=== PATIENT | male | born 1960 | race Caucasian/White ===

== ENCOUNTER 2020-06-03 14:10 | Outpatient (REF) | payer BC, SELFPAY | END 2020-06-03 14:11 | disposition home or self-care (01) | LOC: HO.BBR 14:10 | PROVIDERS: Visit Provider Internal Medicine Hematology & Oncology | DX: D45 Polycythemia vera (principal) | CPT/HCPCS: 85018; 99195 ==

== ENCOUNTER 2020-07-22 14:53 | Outpatient (REF) | payer BC, SELFPAY | END 2020-07-22 14:54 | disposition home or self-care (01) | LOC: HO.BBR 14:53 | PROVIDERS: Visit Provider Internal Medicine Hematology & Oncology | DX: D45 Polycythemia vera (principal) | CPT/HCPCS: 85018; 99195 ==

== ENCOUNTER 2020-11-25 15:04 | Outpatient (REF) | payer BC, SELFPAY | END 2020-11-25 15:05 | disposition home or self-care (01) | LOC: HO.BBR 15:04 | PROVIDERS: Visit Provider Internal Medicine Hematology & Oncology | DX: D45 Polycythemia vera (principal) | CPT/HCPCS: 36415; 85014; 85018; 99195 ==

== ENCOUNTER 2021-01-06 14:48 | Outpatient (REF) | payer BC, SELFPAY | END 2021-01-06 14:49 | disposition home or self-care (01) | LOC: HO.BBR 14:48 | PROVIDERS: PCP Internal Medicine; Visit Provider Internal Medicine Hematology & Oncology | DX: D45 Polycythemia vera (principal) | CPT/HCPCS: 85018; 99195 ==

== ENCOUNTER 2021-02-21 15:11 | Outpatient (REF) | payer BC, SELFPAY | END 2021-02-21 15:12 | disposition home or self-care (01) | LOC: HO.BBR 15:11 | PROVIDERS: Visit Provider Internal Medicine Hematology & Oncology | DX: D45 Polycythemia vera (principal) | CPT/HCPCS: 85014; 85018; 99195 ==

== ENCOUNTER 2021-05-19 14:48 | Outpatient (REF) | payer BC, SELFPAY | END 2021-05-19 14:49 | disposition home or self-care (01) | LOC: HO.BBR 14:48 | PROVIDERS: Visit Provider Internal Medicine Hematology & Oncology | DX: D45 Polycythemia vera (principal) | CPT/HCPCS: 85018; 99195 ==

== ENCOUNTER 2021-09-23 11:54 | Outpatient (REF) | payer BC, SELFPAY | END 2021-09-23 11:55 | disposition home or self-care (01) | LOC: HO.BBR 11:54 | PROVIDERS: Visit Provider Internal Medicine Hematology & Oncology | DX: D45 Polycythemia vera (principal) | CPT/HCPCS: 85018; 99195 ==

== ENCOUNTER 2021-12-16 13:51 | Outpatient (REF) | payer BC, SELFPAY | END 2021-12-16 13:52 | disposition home or self-care (01) | LOC: HO.BBR 13:51 | PROVIDERS: Visit Provider Internal Medicine Hematology & Oncology | DX: D45 Polycythemia vera (principal) | CPT/HCPCS: 85018; 99195 ==

== ENCOUNTER 2022-01-26 14:17 | Outpatient (REF) | payer BC, SELFPAY | END 2022-01-26 14:18 | disposition home or self-care (01) | LOC: HO.BBR 14:17 | PROVIDERS: Visit Provider Internal Medicine Hematology & Oncology | DX: D45 Polycythemia vera (principal) | CPT/HCPCS: 85018; 99195 ==

== ENCOUNTER 2022-04-21 13:59 | Outpatient (REF) | payer BC, SELFPAY | END 2022-04-21 14:00 | disposition home or self-care (01) | LOC: HO.BBR 13:59 | PROVIDERS: Visit Provider Internal Medicine Hematology & Oncology | DX: D45 Polycythemia vera (principal) | CPT/HCPCS: 85018; 99195 ==

== ENCOUNTER 2022-06-01 13:56 | Outpatient (REF) | payer BC, SELFPAY | END 2022-06-01 13:57 | disposition home or self-care (01) | LOC: HO.BBR 13:56 | PROVIDERS: Visit Provider Internal Medicine Hematology & Oncology | DX: Z13.89 Encounter for screening for other disorder (principal) ==

== ENCOUNTER 2022-07-21 13:52 | Outpatient (REF) | payer BC, SELFPAY | END 2022-07-21 13:53 | disposition home or self-care (01) | LOC: HO.BBR 13:52 | PROVIDERS: Visit Provider Internal Medicine Hematology & Oncology | DX: D45 Polycythemia vera (principal) | CPT/HCPCS: 85018; 99195 ==

== ENCOUNTER 2022-11-02 11:54 | Outpatient (REF) | payer OTHER, SELFPAY | END 2022-11-02 11:55 | disposition home or self-care (01) | LOC: HO.BBR 11:54 | PROVIDERS: Visit Provider Internal Medicine Hematology & Oncology | DX: D45 Polycythemia vera (principal) | CPT/HCPCS: 85018; 99195 ==

== ENCOUNTER 2023-01-26 13:48 | Outpatient (REF) | payer OTHER, SELFPAY | END 2023-01-26 13:49 | disposition home or self-care (01) | LOC: HO.BBR 13:48 | PROVIDERS: Visit Provider Internal Medicine Hematology & Oncology | DX: D45 Polycythemia vera (principal) | CPT/HCPCS: 85018; 99195 ==

== ENCOUNTER 2023-03-09 13:48 | Outpatient (REF) | payer OTHER, SELFPAY | END 2023-03-09 13:49 | disposition home or self-care (01) | LOC: HO.BBR 13:48 | PROVIDERS: Visit Provider Internal Medicine Hematology & Oncology | DX: D45 Polycythemia vera (principal) | CPT/HCPCS: 85014; 85018; 99195 ==

== ENCOUNTER 2023-07-19 13:57 | Outpatient (REF) | payer OTHER, SELFPAY | END 2023-07-19 13:58 | disposition home or self-care (01) | LOC: HO.BBR 13:57 | PROVIDERS: Visit Provider Internal Medicine Hematology & Oncology | DX: D75.1 Secondary polycythemia (principal) | CPT/HCPCS: 85014; 85018; 99195 ==

== ENCOUNTER 2023-10-11 09:54 | Outpatient (REF) | payer OTHER, SELFPAY | END 2023-10-11 09:55 | disposition home or self-care (01) | LOC: HO.BBR 09:54 | PROVIDERS: Visit Provider Internal Medicine Hematology & Oncology | DX: D45 Polycythemia vera (principal) | CPT/HCPCS: 85014; 85018; 99195 ==

== ENCOUNTER 2024-01-11 10:02 | Outpatient (REF) | payer OTHER, SELFPAY | END 2024-01-11 10:03 | disposition home or self-care (01) | LOC: HO.BBR 10:02 | PROVIDERS: Visit Provider Internal Medicine Hematology & Oncology | DX: D45 Polycythemia vera (principal) | CPT/HCPCS: 85018 ==

== ENCOUNTER 2024-01-12 07:52 | Outpatient (REF) | payer OTHER, SELFPAY | END 2024-01-12 07:53 | disposition home or self-care (01) | LOC: HO.BBR 07:52 | PROVIDERS: Visit Provider Internal Medicine Hematology & Oncology | DX: D45 Polycythemia vera (principal) | CPT/HCPCS: 85018; 99195 ==

== ENCOUNTER 2024-04-10 11:48 | Outpatient (REF) | payer OTHER, SELFPAY | END 2024-04-10 11:49 | disposition home or self-care (01) | LOC: HO.BBR 11:48 | PROVIDERS: Visit Provider Internal Medicine Hematology & Oncology | DX: D45 Polycythemia vera (principal) | CPT/HCPCS: 85018; 99195 ==

== ENCOUNTER 2024-09-26 09:53 | Outpatient (REF) | payer OTHER, SELFPAY ==
--- OUTSIDE RECORDS SUMMARY | 2024-09-26 11:03 | XMS_ITS | Clinical Summary ---
Author Organization [facility] Address [address] [place] [address] Care Team Providers Care Poultry Culler Name Role Phone Maritza Dalton MD Primary Care Provider [phone] Allergies No known active allergies Medications Medication Sig Dispensed Refills Start Date End Date Status pravastatin (PRAVACHOL) tablet 20 mg Take 1 tablet (20 mg total) by mouth daily. 0 Active lisinopril 20 MG TABS 1 tablet, hydrochlorothiazide 25 MG TABS 1 tablet Take 1 tablet by mouth daily. 0 Active aspirin 81 MG tablet Take 1 tablet (81 mg total) by mouth daily. 0 Active HYDROcodone-acetaminophe n (NORCO) 5-325 MG per tablet Take 1 tablet by mouth every 6 (six) hours as needed for pain. 30 tablet 0 08/14/2020 Active gabapentin (NEURONTIN) 100 MG capsule Take 2 capsules (200 mg total) by mouth 3 (three) times a day. 180 capsule 1 08/30/2020 Active Active Problems Problem Noted Date Diagnosed Date Erythromelalgia 08/30/2020 Polycythemia vera 03/02/2017 Family History Medical History Relation Name Comments Cancer Father brain Relation Name Status Comments Father Social History Tobacco Use Types Packs/Day Years Used Date Smoking Tobacco: Never Smokeless Tobacco: Never Alcohol Use Standard Drinks/Week Comments No 0 (1 standard drink = 0.6 oz pur e alcohol) Sex and Gender Information Value Date Recorded Sex Assigned at Not on file Gender Identity Not on file Sexual Orientation Not on file Job Start Date Occupation Industry Not on file Not on file Not on file Last Filed Vital Signs Vital Sign Reading Time Taken Comments Blood Pressure 133/79 05/19/2024 3:26 PM EDT Pulse 85 05/19/2024 3:26 PM EDT Temperature 36.6 ??C (97.8 ??F) 05/19/2024 3:26 PM ED T Respiratory Rate - - Oxygen Saturation 99% 05/19/2024 3:26 PM EDT Inhaled Oxygen Concentration - - Weight 92.1 kg (203 lb) 05/19/2024 3:26 PM EDT Height 170.2 cm (5' 7 ) 05/19/2024 3:26 PM EDT Body Mass Index 31.79 05/19/2024 3:26 PM EDT Plan of Treatment Health Maintenance Due Date Last Done Comments Hepatitis C Screening 1960 COVID-19 Vaccine (#1) 1963 Pneumococcal Vaccine (1 of 2 - PCV) 01/18/1964 Depression Screening 1970 BMI Counseling 01/18/1976 Preventative Health Evaluation 01/18/1976 DTap / Tdap / Td (1 - Tdap) 1977 Shingrix-Zoster Vaccine (1 of 2) 1977 Colon Cancer Screening (Colonoscopy) 2003 Fall Risk Assessment 2023 Influenza Vaccine (#1) 2024 RSV Adult > 60+ Yrs or Pregn ant (1 - 1-dose 75+ series) 2033 Hepatitis B Vaccines Aged Out No long er eligible based on patient's age to complete this topic RSV Ped < 20 months Aged Out No longe r eligible based on patient's age to complete this topic Care Teams Poultry Culler Relationship Specialty Start Date End Date Maritza Dalton MD [address] [place] [address] [address] [place] [address] PCP - General Internal Medicine 02/24/17
--- OUTSIDE RECORDS SUMMARY | 2024-09-26 11:03 | XMS_ITS | Encounter Summary ---
Author Organization [facility] Address [address] [place] [address] Care Team Providers Care Die Maker Electronic Name Role Phone Maritza Dalton MD Primary Care Provider [phone] Encounter Details Date Type Department Care Team (Late Contact Info) Description 09/25/2024 Telephone Gastroenterology - [address] [phone] Carl Herrera MD [address] [address] Social History Tobacco Use Types Packs/Day Years Used Date Smoking Tobacco: Never Smokeless Tobacco: Never Alcohol Use Standard Drinks/Week Comments No 0 (1 standard drink = 0.6 oz pur e alcohol) Sex and Gender Information Value Date Recorded Sex Assigned at Not on file Legal Sex Male 7:04 AM EST Gender Identity Not on file Sexual Orientation Not on file documented as of this encounter Progress Notes * Shawna Morrison - 09/25/2024 10:32 AM EST PT RETURNING CALL TO SCHEDULE COLON documented in this encounter Plan of Treatment Upcoming Encounters Date Type Department Care Team (Late st Contact Info) Description 12/15/2024 2:30 PM EDT Office Visit [facility] Hematology Oncology [address] [place] [phone] Jose M Jose MD [address] [place] [address] documented as of this encounter Visit Diagnoses Not on filedocumented in this encounter Care Teams Die Maker Electronic Relationship Specialty Start Date End Date Maritza Dalton MD [address] [place] [address] PCP - General Internal Medicine 02/24/17 documented as of this encounter
--- OUTSIDE RECORDS SUMMARY | 2024-09-26 11:03 | XMS_ITS | Encounter Summary ---
Author Organization [facility] Address [address] [place] [phone] Care Team Providers Care Precision Honing Machine Operator Name Role Phone Maritza Dalton MD Primary Care Provider [phone] Reason for Visit * Reason Comments Follow-up Encounter Details Date Type Department Care Team (Late st Contact Info) Description 09/22/2024 2:15 PM EST Office Visit [facility] Hematology Oncology [address] [place] [phone] Jose M Jose MD [address] [place] [phone] Polycythemia vera (CMS/HCC) (Primary Dx) Social History Tobacco Use Types Packs/Day Years Used Date Smoking Tobacco: Never Smokeless Tobacco: Never Tobacco Cessation:Counseling Given: Not Answered Alcohol Use Standard Drinks/Week Comments No 0 (1 standard drink = 0.6 oz pur e alcohol) Sex and Gender Information Value Date Recorded Sex Assigned at Not on file Legal Sex Male 7:04 AM EST Gender Identity Not on file Sexual Orientation Not on file documented as of this encounter Last Filed Vital Signs Vital Sign Reading Time Taken Comments Blood Pressure 155/74 09/22/2024 2:17 PM EST Pulse 97 09/22/2024 2:17 PM EST Temperature 36.2 ??C (97.2 ??F) 09/22/2024 2:17 PM ES T Respiratory Rate - - Oxygen Saturation 100% 09/22/2024 2:17 PM EST Inhaled Oxygen Concentration - - Weight 94.3 kg (208 lb) 09/22/2024 2:17 PM EST Height - - Body Mass Index 32.58 06/30/2024 3:39 PM EST documented in this encounter Progress Notes * Jose M Jose MD - 09/22/2024 2:15 PM EST Diagnosis/treatment: Polycythemia vera, diagnosed in 2010. He is treated with phlebotomies every 6 weeks and ASA 81 mg daily. Interval history: The patient is a 64 yo M [...] has hypertension, which is improved with phlebotomies. A FRANK-2 exon 12 and 13 and a FRANK-2 exon 14 studies and a BCR-ABL study were negative. An EPO level was normal. A CXR was unremarkable. An abdominal US was unremarkable. He has started phlebotomies at 450 cc and is tolerating the procedures well. He had one syncopal episode in the infusion room in mid-06/2012 immediately following phlebotomy, but reported not having eaten breakfast or lunch that day. A CBC on 08/28/2020 showed a WBC [...] MCV 87, and platelet count 525,000. He underwent a left knee replacement on 06/01/2024. A CBC on 06/28/2024 showed WBC 10.9, hemoglobin 13.2 with MCV 91, and platelet count 675,000. A CBC on 08/08/2024 showed WBC 9.8, hemoglobin 14.9 with MCV 91, and platelet count 524,000. A CBC on 09/20/2024 showed WBC 11.7, hemoglobin 13.7 with MCV 90, and platelet count 540,000. 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 He reports that the pain is bothersome at nighttime, especially while lying flat, and prevents him from sleeping, but remits during the day. The swelling also is worse at nighttime and remits during the day. She presented to the [facility] ER on 08/08/2020. A Doppler ultrasound [...] edema. Skin: No rash. Neurologic: Normal gait. Assessment/plan: The patient is a 64 yo M who was referred for evaluation of polycythemia. He likely has a [id number] polycythemia vera. An EPO level and an [...] not recurred. He remains off gabapentin. He underwent a left knee replacement on 06/01/2024. We have held the phlebotomies due to the anticipated blood loss from the surgery. We will restart phlebotomies when the hemoglobin rises above 15.0. Visit summary: The patient is a 64-year-old gentleman with a history of polycythemia vera. He is maintained on a phlebotomy regimen every 6-12 weeks with a target hemoglobin 15.0. He tolerates phlebotomies well without side effects. The hemoglobin is well-controlled with the phlebotomies. He remains on aspirin. This encounter is of moderate risk. The patient has a polycythemia vera, which is life-threatening condition. He ady on a phlebotomy regimen. documented in this encounter Plan of Treatment Upcoming Encounters Date Type Department Care Team (Late st Contact Info) Description 12/15/2024 2:30 PM EDT Office Visit [facility] Hematology Oncology [address] [place] [phone] Jose M Jose MD [address] [place] [phone] documented as of this encounter Visit Diagnoses Diagnosis Polycythemia vera (CMS/HCC)- Primary documented in this encounter Care Teams Precision Honing Machine Operator Relationship Specialty Start Date End Date Maritza Dalton MD [address] [place] [address] PCP - General Internal Medicine 02/24/17 documented as of this encounter
--- OUTSIDE RECORDS SUMMARY | 2024-09-26 11:03 | XMS_ITS | Encounter Summary ---
Author Organization [facility] Address [address] [place] [address] Care Team Providers Care Oncology Admin Name Role Phone Maritza Dalton MD Primary Care Provider [phone] Encounter Details Date Type Department Care Team (Late st Contact Info) Description 05/19/2024 3:11 PM EDT Hospital Encounter TH HISTORIC ENCOUNTERS EASTERN CONVERSION ONLY Jose M Jose MD [address] [place] [phone] Social History Tobacco Use Types Packs/Day [...] during the day. She presented to the [facility] ER on 08/08/2020. A Doppler ultrasound [...] evaluation of polycythemia. He likely has a [id number] polycythemia vera. An EPO level and an [...] Description 12/15/2024 2:30 PM EDT Office Visit [facility] Hematology Oncology [address] [place] [address] Jose M Jose MD [address] [place] [address] documented as of this encounter Procedures Procedure Name Priority Date/Time Associated Diagnosis Comments ..MISCELLANEOUS REFERENCE LAB TEST 05/19/2024 documented in this encounter Results * Miscellaneous reference lab test (05/19/2024) us Provider Onbase LAB BLOOD ORDERABLES Final Re sult documented in this encounter Visit Diagnoses Not on filedocumented in this encounter Care Teams Oncology Admin Relationship Specialty Start Date End Date Maritza Dalton MD [address] [place], [place] PCP - General Internal Medicine 02/24/17 documented as of this encounter
--- OUTSIDE RECORDS SUMMARY | 2024-09-26 11:03 | XMS_ITS | Encounter Summary ---
Author Organization [facility] Address [address] [place] [address] Care Team Providers Care Rubber Curer Name Role Phone Maritza Dalton MD Primary Care Provider [phone] Encounter Details Date Type Department Care Team (Late st Contact Info) Description 08/25/2024 Telephone Gastroenterology - [address] [phone] Carl Herrera MD [address] [address] Social History Tobacco Use Types Packs/Day Years [...] as of this encounter Progress Notes * Lesia Del Angel - 08/29/2024 4:23 PM EST DEMOS IN MEDIA, CALL PT. * Lesia Del Angel - 08/29/2024 8:47 AM EST H&P IN MEDIA, NO DEMOS. FAX SENT TO PCP * Betty Escobar MA - 08/25/2024 3:41 PM EST PATIENT IS BEING SCHEDULED FOR DIRECT COLON/EGD: Blood thinners/anemic? n Aspirin? n Heart conditions? n Diabetic? n Weight loss meds? n Pt calling PCP for H&P? y documented in this encounter Plan of Treatment Upcoming Encounters Date Type Department Care Team (Late st Contact Info) Description 12/15/2024 2:30 PM EDT Office Visit [facility] Hematology Oncology [address] [place] [address] Jose M Jose MD [address] [place] [address] documented as of this encounter Visit Diagnoses Not on filedocumented in this encounter Care Teams Rubber Curer Relationship Specialty Start Date End Date Maritza Dalton MD [address] [place] [address] PCP - General Internal Medicine 02/24/17 documented as of this encounter
--- OUTSIDE RECORDS SUMMARY | 2024-09-26 11:03 | XMS_ITS | Clinical Summary ---
Author Organization [facility] Address [address] [place] [address] Phone Care Team Providers Care Coo Name Role Phone Maritza Dalton MD Primary Care Provider [phone] Allergies No known active allergies Medications aspirin (ASPIR-81 ORAL) Take 1 tablet (81 mg total) by mouth daily. Active lisinopril-hydr oCHLOROthiazide (PRINZIDE,ZESTO RETIC) 20-25 mg per tablet Take 1 tablet by mouth daily. Active gabapentin (NEURONTIN) 100 mg capsule Take 2 capsules (200 mg total) by mouth 3 (three) times a day. 08/30/2020 Active HYDROcodone-rose taminophen (NORCO) 5-325 mg per tablet Take 1 tablet by mouth every 6 (six) hours as needed for pain. 08/14/2020 Active pravastatin (PRAVACHOL) 20 mg tablet Take 1 tablet (20 mg total) by mouth daily. Active Active Problems Problem Noted Date Diagnosed Date Erythromelalgia 08/30/2020 Polycythemia vera 03/02/2017 Encounters Date Type Department Care Team Description 09/25/2024 Telephone Gastroenterology - [address] [address] Carl Herrera MD 09/22/2024 2:15 PM EST Office Visit [facility] Hematology Oncology [address] [place] [address] Jose M Jose MD Polycythemia vera (CMS/HCC) (Primary Dx) 08/25/2024 Telephone Gastroenterology - 299 [address] [facility] [address] [address] Carl Herrera MD 08/11/2024 2:15 PM EST Office Visit [facility] Hematology Oncology [address] [place] [address] Jose M Jose MD Erythromelalgia (CMS/HCC) (Primary Dx); Polycythemia vera (CMS/HCC) 06/30/2024 3:45 PM EST Office Visit [facility] Hematology Oncology [address] [place] [address] Jose M Jose MD Polycythemia vera (CMS/HCC) (Primary Dx); Erythromelalgia (CMS/HCC) from Last 3 Months Surgical History Surgery Date Site/Laterality Comments TOTAL KNEE ARTHROPLASTY 06/01/2024 Left Medical History Medical History Date Comments Polycythemia DX:Polycythemia Hypertension DX:Hypertension Hypercholesterolemia DX:Hypercho lesterolemia Family History Medical History Relation Name Comments [...] on file Sexual Orientation Not on file Obstetrics History Last Filed Vital Signs Vital Sign Reading Time Taken Comments Blood Pressure 155/74 09/22/2024 2:17 PM EST Pulse 97 09/22/2024 2:17 PM EST Temperature 36.2 ??C (97.2 ??F) 09/22/2024 2:17 PM ES T Respiratory Rate - - Oxygen Saturation 100% 09/22/2024 2:17 PM EST Inhaled Oxygen Concentration - - Weight 94.3 kg (208 lb) 09/22/2024 2:17 PM EST Height 170.2 cm (5' 7 ) 06/30/2024 3:39 PM EST Body Mass Index 32.58 06/30/2024 3:39 PM EST Plan of Treatment Upcoming Encounters Date Type Department Care Team (Late st Contact Info) Description 12/15/2024 2:30 PM EDT Office Visit [facility] Hematology Oncology [address] [place] [address] Jose M Jose MD [address] [place] [address] Health Maintenance Due Date Last Done Comments Pneumococcal Vaccine: 50+ Years (1 of 2 - PCV) 1977 Zoster Vaccines (1 of 2) 1977 Cholesterol Screening (Lipid Panel) 07/19/2022 Colorectal Cancer Screening: Colonoscopy 07/19/2022 Depression Screening 07/19/2022 Hepatitis C Screening 07/19/2022 Medicare Annual Wellness Visit 07/19/2022 Social Influencers of Health Screening 07/19/2022 DTaP,Tdap,and Td Vaccines (2 - Td or Tdap) 11/16/2022 10/19/2022 Falls Risk Assessment 2023 Hypertension/CHF/CAD Annual BMP Blood Test 06/28/2024 RSV Immunization Patients 60+ Years Old (1 - 1-dose 75+ series) 2033 COVID-19 Vaccine Completed 04/24/2024, 10/2022, 05/12/2022, Additional history exists Influenza Vaccine Completed 04/24/2024, , 05/03/2022, Additional history exists HIB Vaccines Aged Out No longer eligi ble based on patient's age to complete this topic HPV Vaccines Aged Out No longer eligi ble based on patient's age to complete this topic Hepatitis A Vaccines Aged Out No long er eligible based on patient's age to complete this topic Hepatitis B Vaccines Aged Out No long er eligible based on patient's age to complete this topic IPV Vaccines Aged Out No longer eligi ble based on patient's age to complete this topic MMR Vaccines Aged Out No longer eligi ble based on patient's age to complete this topic Meningococcal ACWY Vaccine Aged Out N o longer eligible based on patient's age to complete this topic Meningococcal B Vacine Aged Out No lo nger eligible based on patient's age to complete this topic RSV Immunization Patients Under 20 months Aged Out No longer eligible based on patient's age to complete this topic Varicella Vaccines Aged Out No longer eligible based on patient's age to complete this topic Procedures Procedure Name Priority Date/Time Associated Diagnosis Comments CBC WITH AUTO DIFFERENTIAL Routine 09/20/2024 1:08 PM EST Polycythemia vera (CMS/HCC) CBC AND DIFFERENTIAL Routine 09/20/2024 1:08 PM EST Polycythemia vera (CMS/HCC) CBC WITH AUTO DIFFERENTIAL Routine 08/08/2024 7:58 AM EST Polycythemia vera (CMS/HCC) CBC AND DIFFERENTIAL Routine 08/08/2024 7:58 AM EST Polycythemia vera (CMS/HCC) CBC WITH AUTO DIFFERENTIAL Routine 06/28/2024 11:27 AM EST Polycythemia vera (CMS/HCC) Erythromelalgia (CMS/HCC) CBC AND DIFFERENTIAL Routine 06/28/2024 11:27 AM EST Polycythemia vera (CMS/HCC) Erythromelalgia (CMS/HCC) from Last 3 Months Results * (ABNORMAL) CBC auto differential (09/20/2024 1:08 PM EST) Only the most recent of3 resultswithin the time period is included. WBC 11.7(H) 4.8 - 10.8 K/mcL LAB HEMETOLOGY METHOD 09/20/2024 1:47 PM [facility] RBC 5.40 4.50 - 5.50 M/mcL LAB HEMETOLOGY METHOD 09/20/2024 1:47 PM [facility] Hemoglobin 15.7 13.5 - 17.5 g/dL LAB HEMETOLOGY METHOD 09/20/2024 1:47 PM [facility] Hematocrit 48.6 42.0 - 54.0 % LAB HEMETOLOGY METHOD 09/20/2024 1:47 PM [facility] MCV 90.2 79.0 - 98.0 FL LAB HEMETOLOGY METHOD 09/20/2024 1:47 PM [facility] MCH 29.1 27.0 - 32.0 pcg LAB HEMETOLOGY METHOD 09/20/2024 1:47 PM [facility] MCHC 32.3 32.0 - 37.0 g/dL LAB HEMETOLOGY METHOD 09/20/2024 1:47 PM [facility] RDW 14.0 11.0 - 15.0 % LAB HEMETOLOGY METHOD 09/20/2024 1:47 PM [facility] Platelets 548(H) 130 - 400 K/mcL LAB HEMETOLOGY METHOD 09/20/2024 1:47 PM [facility] MPV 9.2 7.0 - 11.0 FL LAB HEMETOLOGY METHOD 09/20/2024 1:47 PM [facility] NRBC 0.0 <1.0 % LAB HEMETOLOGY METHOD 09/20/2024 1:47 PM [facility] NRBC Absolute 0.00 <0.10 K/mcL LAB HEMETOLOGY METHOD 09/20/2024 1:47 PM [facility] Neutrophils Relative 71.6 % LAB HEMETOLOGY METHOD 09/20/2024 1:47 PM [facility] Lymphocytes Relative 15.9 % LAB HEMETOLOGY METHOD 09/20/2024 1:47 PM [facility] Monocytes Relative 9.8 % LAB HEMETOLOGY METHOD 09/20/2024 1:47 PM [facility] Eosinophils Relative 1.4 % LAB HEMETOLOGY METHOD 09/20/2024 1:47 PM [facility] Basophils Relative 1.0 % LAB HEMETOLOGY METHOD 09/20/2024 1:47 PM [facility] Immature Granulocytes Relative 0.3 % LAB HEMETOLOGY METHOD 09/20/2024 1:47 PM [facility] Neutrophils Absolute 8.39(H) 1.50 - 7.00 K/mcL LAB HEMETOLOGY METHOD 09/20/2024 1:47 PM EST [facility] Lymphocytes Absolute 1.86 1.00 - 5.00 K/mcL LAB HEMETOLOGY METHOD 09/20/2024 1:47 PM EST [facility] Monocytes Absolute 1.15(H) 0.20 - 1.00 K/mcL LAB HEMETOLOGY METHOD 09/20/2024 1:47 PM EST [facility] Eosinophils Absolute 0.17 0.00 - 0.50 K/mcL LAB HEMETOLOGY METHOD 09/20/2024 1:47 PM EST [facility] Basophils Absolute 0.12 0.00 - 0.20 K/mcL LAB HEMETOLOGY METHOD 09/20/2024 1:47 PM [facility] Immature Granulocytes Absolute 0.04(H) 0.00 - 0.03 K/mcL LAB HEMETOLOGY METHOD 09/20/2024 1:47 PM [facility] Blood Venous blood specimen / Unknown Venipuncture / Unknown 09/20/2024 1:08 PM EST 09/20/2024 1:32 PM EST Jose M Jose MD LAB BLOOD ORDERABLES Final Result [facility] [address] [place] [address], from Last 3 Months Insurance [employer] MEDICARE Care Teams Coo Relationship Specialty Start Date End Date Maritza Dalton MD [address] [place] [address] PCP - General Internal Medicine 02/24/17
== END 2024-09-26 09:54 | disposition home or self-care (01) ==
LOC: HO.BBR 09:53
PROVIDERS: Visit Provider Internal Medicine Hematology & Oncology
DX: D45 Polycythemia vera (principal)
CPT/HCPCS: 85014; 85018; 99195

== ENCOUNTER 2024-11-06 08:06 | Outpatient (REF) | payer OTHER, SELFPAY | END 2024-11-06 08:07 | disposition home or self-care (01) | LOC: HO.BBR 08:06 | PROVIDERS: Visit Provider Internal Medicine Hematology & Oncology | DX: D45 Polycythemia vera (principal) | CPT/HCPCS: 85018; 99195 ==

== ENCOUNTER 2024-12-18 08:52 | Outpatient (REF) | payer OTHER, SELFPAY ==
--- OUTSIDE RECORDS SUMMARY | 2024-12-18 09:19 | XMS_ITS | Clinical Summary ---
Author Organization [facility] Address [address] [place] [address] Care Team Providers Care Fountain Operator Name Role Phone Maritza Dalton MD Primary Care Provider [phone] Allergies No known active allergies Medications Medication [...] age to complete this topic Care Teams Fountain Operator Relationship Specialty Start Date End Date Maritza Dalton MD [address] [place] [address] [address] [place] [address] PCP - General Internal Medicine 02/24/17
== END 2024-12-18 08:53 | disposition home or self-care (01) ==
LOC: HO.BBR 08:52
PROVIDERS: Visit Provider Internal Medicine Hematology & Oncology
DX: D45 Polycythemia vera (principal)
CPT/HCPCS: 85018; 99195

== ENCOUNTER 2025-04-23 10:54 | Outpatient (REF) | payer OTHER, SELFPAY ==
--- OUTSIDE RECORDS SUMMARY | 2024-05-19 15:11 | XMS_ITS | Encounter Summary ---
Author Organization [facility] Address [address] [place] [address] Care Team Providers Care Edge Plugger Name Role Phone Maritza Dalton MD Primary Care Provider [phone] Encounter Details Date Type Department Care Team (Late st Contact Info) Description 05/19/2024 3:11 PM EDT Hospital Encounter TH HISTORIC ENCOUNTERS EASTERN CONVERSION ONLY Jose M Jose MD [address] [place] [phone] Social History Tobacco Use Types Packs/Day Years Used Date Smoking Tobacco: Never Smokeless Tobacco: Never Alcohol Use Standard Drinks/Week Comments No 0 (1 standard drink = 0.6 oz pur e alcohol) Interpersonal Safety Answer Date Record ed Physical Abuse 10/11/2024 Verbal Abuse 10/11/2024 Sex and Gender Information Value Date [...] during the day. She presented to the [facility] ER on 08/08/2020. A Doppler ultrasound of [...] evaluation of polycythemia. He likely has a [id number] polycythemia vera. An EPO level and an [...] Care Team (Late st Contact Info) Description 06/01/2025 2:00 PM EDT Office Visit [facility] Hematology Oncology [address] [place] [address] Jose M Jose MD [address] [place] [address] documented as of this encounter Procedures Procedure Name Priority Date/Time Associated Diagnosis Comments ..MISCELLANEOUS REFERENCE LAB TEST 05/19/2024 documented in this encounter Results * Miscellaneous reference lab test (05/19/2024) us Provider Onbase LAB BLOOD ORDERABLES Final Re sult documented in this encounter Visit Diagnoses Not on filedocumented in this encounter Care Teams Edge Plugger Relationship Specialty Start Date End Date Maritza Dalton MD [address] [place] [address] PCP - General Internal Medicine 02/24/17 documented as of this encounter
--- OUTSIDE RECORDS SUMMARY | 2025-04-23 13:17 | XMS_ITS | Clinical Summary ---
Author Organization [facility] Address [address] [place] [address] Phone Care Team Providers Care Assistance Representative Name Role Phone Maritza Dalton MD Primary Care Provider [phone] Allergies No known active allergies Medications aspirin [...] Problems Problem Noted Date Diagnosed Date Erythromelalgia (CMS/HCC V24) 08/30/2020 Polycythemia vera (CMS/HCC V24, CMS/HCC V28) Encounters Date Type Department Care Team Description 03/09/2025 2:00 PM EDT Office Visit [facility] Hematology Oncology [address] [place] [address] Jose M Jose MD Polycythemia vera (CMS/HCC V24, CMS/HCC V28) (Primary Dx) from Last 3 Months Surgical History Surgery Date Site/Laterality Comments TOTAL KNEE ARTHROPLASTY 06/01/2024 Left COLONOSCOPY Medical History Medical History Date Comments Polycythemia DX:Polycythemia Hypertension DX:Hypertension Hypercholesterolemia DX:Hypercho lesterolemia Polycythemia vera ([facility] V24, [facility] V28) Family History Medical History Relation Name Comments [...] Orientation Straight 10/11/2024 9: 01 AM EST Obstetrics History Last Filed Vital Signs Vital Sign Reading Time Taken Comments Blood Pressure 135/79 03/09/2025 1:58 PM EDT Pulse 91 03/09/2025 1:58 PM EDT Temperature 35.8 C (96.4 F) 03/09/2025 1:58 PM EDT Respiratory Rate 18 10/11/2024 10:17 AM EST Oxygen Saturation 96% 03/09/2025 1:58 PM EDT Inhaled Oxygen Concentration - - Weight 95.3 kg (210 lb) 03/09/2025 1:58 PM EDT Height 170.2 cm (5' 7 ) 10/11/2024 9:26 AM EST Body Mass Index 32.89 10/11/2024 9:26 AM EST Plan of Treatment Upcoming Encounters Date Type Department Care Team (Late st Contact Info) Description 06/01/2025 2:00 PM EDT Office Visit [facility] Hematology Oncology [address] [place] [address] Jose M Jose MD [address] [place] [address] Health Maintenance Due Date Last Done Comments Zoster Vaccines (1 of 2) 1977 Pneumococcal Vaccine: 50+ Years (1 of 1 - PCV) 01/18/2008 Cholesterol Screening (Lipid Panel) 07/19/2022 Hepatitis C Screening 07/19/2022 Medicare Annual Wellness Visit 07/19/2022 Social Influencers of Health Screening 07/19/2022 Hypertension/CHF/CAD Annual BMP Blood Test 06/28/2024 Depression Screening 08/16/2024 COVID-19 Vaccine (6 - Pfizer risk season) 2025 04/24/2024, 05/18/2023, 05/12/2022, Additional history exists Falls Risk Assessment 10/11/2025 10/11/2024 DTaP,Tdap,and Td Vaccines (2 - Td or Tdap) 10/19/2032 10/19/2022 RSV Immunization Adult Patients (1 - 1-dose 75+ series) 2033 Colorectal Cancer Screening: Colonoscopy 10/11/2034 10/11/2024, 10/10/2024 Influenza Vaccine Completed 03/30/2025, , 04/20/2023, Additional history exists HIB Vaccines Aged Out [...] age to complete this topic Meningococcal B Vaccine Aged Out No l onger eligible based on patient's age to complete this topic RSV Immunization Patients Under 20 months Aged Out No longer eligible based on patient's age to complete this topic Varicella Vaccines Aged Out No longer eligible based on patient's age to complete this topic Procedures Procedure Name Priority Date/Time Associated Diagnosis Comments CBC WITH AUTO DIFFERENTIAL Routine 04/18/2025 9:19 AM EDT Polycythemia vera (CMS/HCC V24, CMS/HCC V28) CBC AND DIFFERENTIAL Routine 04/18/2025 9:19 AM EDT Polycythemia vera (CMS/HCC V24, CMS/HCC V28) CBC WITH AUTO DIFFERENTIAL Routine 03/07/2025 8:19 AM EDT Polycythemia vera (CMS/HCC V24, CMS/HCC V28) CBC AND DIFFERENTIAL Routine 03/07/2025 8:19 AM EDT Polycythemia vera (CMS/HCC V24, CMS/HCC V28) CBC WITH AUTO DIFFERENTIAL Routine 01/24/2025 11:06 AM EDT Polycythemia vera (CMS/HCC V24, CMS/HCC V28) CBC AND DIFFERENTIAL Routine 01/24/2025 11:06 AM EDT Polycythemia vera (CMS/HCC V24, CMS/HCC V28) COLONOSCOPY Routine 10/11/2024 9:56 AM EST Personal history of other colon polyps from Last 3 Months or Most Recently Relevant to Health Maintenance Results * (ABNORMAL) CBC auto differential (04/18/2025 9:19 AM EDT) Only the most recent of3 resultswithin the time period is included. WBC 10.0 4.8 - 10.8 K/mcL LAB HEMETOLOGY METHOD 04/18/2025 11:49 AM [facility] RBC 5.60(H) 4.50 - 5.50 M/mcL LAB HEMETOLOGY METHOD 04/18/2025 11:49 AM EDT [facility] Hemoglobin 15.0 13.5 - 17.5 g/dL LAB HEMETOLOGY METHOD 04/18/2025 11:49 AM [facility] Hematocrit 48.2 42.0 - 54.0 % LAB HEMETOLOGY METHOD 04/18/2025 11:49 AM [facility] MCV 86.8 79.0 - 98.0 FL LAB HEMETOLOGY METHOD 04/18/2025 11:49 AM [facility] MCH 27.0 27.0 - 32.0 pcg LAB HEMETOLOGY METHOD 04/18/2025 11:49 AM [facility] MCHC 31.1(L) 32.0 - 37.0 g/dL LAB HEMETOLOGY METHOD 04/18/2025 11:49 AM [facility] RDW 16.7(H) 11.0 - 15.0 % LAB HEMETOLOGY METHOD 04/18/2025 11:49 AM [facility] Platelets 479(H) 130 - 400 K/mcL LAB HEMETOLOGY METHOD 04/18/2025 11:49 AM [facility] MPV 9.7 7.0 - 11.0 FL LAB HEMETOLOGY METHOD 04/18/2025 11:49 AM [facility] NRBC 0.0 <1.0 % LAB HEMETOLOGY METHOD 04/18/2025 11:49 AM [facility] NRBC Absolute 0.00 <0.10 K/mcL LAB HEMETOLOGY METHOD 04/18/2025 11:49 AM [facility] Neutrophils Relative 72.8 % LAB HEMETOLOGY METHOD 04/18/2025 11:49 AM [facility] Lymphocytes Relative 16.0 % LAB HEMETOLOGY METHOD 04/18/2025 11:49 AM [facility] Monocytes Relative 7.7 % LAB HEMETOLOGY METHOD 04/18/2025 11:49 AM [facility] Eosinophils Relative 1.9 % LAB HEMETOLOGY METHOD 04/18/2025 11:49 AM [facility] Basophils Relative 1.2 % LAB HEMETOLOGY METHOD 04/18/2025 11:49 AM [facility] Immature Granulocytes Relative 0.4 % LAB HEMETOLOGY METHOD 04/18/2025 11:49 AM EDT [facility] Neutrophils Absolute 7.27(H) 1.50 - 7.00 K/mcL LAB HEMETOLOGY METHOD 04/18/2025 11:49 AM EDT [facility] Lymphocytes Absolute 1.60 1.00 - 5.00 K/mcL LAB HEMETOLOGY METHOD 04/18/2025 11:49 AM EDT [facility] Monocytes Absolute 0.77 0.20 - 1.00 K/mcL LAB HEMETOLOGY METHOD 04/18/2025 11:49 AM EDT [facility] Eosinophils Absolute 0.19 0.00 - 0.50 K/mcL LAB HEMETOLOGY METHOD 04/18/2025 11:49 AM EDT [facility] Basophils Absolute 0.12 0.00 - 0.20 K/mcL LAB HEMETOLOGY METHOD 04/18/2025 11:49 AM EDT [facility] Immature Granulocytes Absolute 0.04(H) 0.00 - 0.03 K/mcL LAB HEMETOLOGY METHOD 04/18/2025 11:49 AM EDT [facility] Blood Venous blood specimen / Unknown Venipuncture / Unknown 04/18/2025 9:19 AM EDT 04/18/2025 11:28 AM EDT Jose M Jose MD LAB BLOOD ORDERABLES Final Result [facility] [address] [place] [address], * [place] [facility] [place] [facility] ENDOSCOPY (10/11/2024 9:56 AM EST) Anatomical Region Laterality Modality Endoscopy 10/11/2024 9:34 AM EST Impressions 10/11/2024 9:57 AM EST - Diverticulosis in the sigmoid colon. - Non-bleeding internal hemorrhoids. - The examination was otherwise normal on direct and retroflexion views. - No specimens collected. Recommendation: - Discharge patient to home. - High fiber diet. - Continue present medications. - Repeat colonoscopy in 5-10 years for surveillance. - Return to GI office PRN. Narrative 10/11/2024 9:57 AM EST [facility] GI Patient Name: Francis Horton Procedure Date: 10/11/2024 9:34 AM Date of : 1960 Age: 64 Room: ROOM 15 Gender: Male Note Status: Finalized Attending MD: Carl Herrera MD, Procedure Date No Time: 10/11/2024 Procedure: Colonoscopy Indications: High risk colon cancer surveillance: Personal history of colonic polyps Providers: Carl Herrera MD Referring MD: Carl Herrera MD Medicines: Monitored Anesthesia Care Complications: No immediate complications. Estimated Blood Loss: Estimated blood loss: none. Procedure: Pre-Anesthesia Assessment: - ASA Grade Assessment: II - A patient with mild systemic disease. - After reviewing the risks and benefits, the patient was deemed in satisfactory condition to undergo the procedure. After I obtained informed consent, the scope was passed under direct vision. Throughout the procedure, the patient's blood pressure, pulse, and oxygen saturations were monitored continuously.The Colonoscope was introduced through the anus and advanced to the cecum, identified by appendiceal orifice and ileocecal valve. The colonoscopy was performed without difficulty. The patient tolerated the procedure well. The quality of the bowel preparation was good. Findings: Multiple small and large-mouthed diverticula were found in the sigmoid colon. Non-bleeding internal hemorrhoids were found during retroflexion. The hemorrhoids were small. The exam was otherwise without abnormality on direct and retroflexion views. Procedure Code(s): --- Professional --- G0105, Colorectal cancer screening; colonoscopy on individual at high risk Diagnosis Code(s): --- Professional --- Z86.010, Personal history of colonic polyps CPT copyright 2020 [employer]. All rights reserved. The codes documented in this report are preliminary and upon operations management trainee review may be revised to meet current compliance requirements. Carl Herrera MD 10/11/2024 9:57:31 AM This report has been signed electronically.Carl Herrera MD Number of Addenda: 0 Note Initiated On: 10/11/2024 9:34 AM Scope In: Scope Out: Endoscopy Department at [facility] - [address] [place] [id number] Procedure Note Carl Herrera MD - 10/11/2024 [facility] GI Patient Name: Francis Horton Procedure Date: 10/11/2024 9:34 AM Date of : 1960 Age: 64 Room: ROOM 15 Gender: Male Note Status: Finalized Attending MD: Carl Herrera MD, Procedure Date No Time: 10/11/2024 Procedure: Colonoscopy Indications: High risk colon cancer surveillance: Personalhistory of colonic polyps Providers: Carl Herrera MD Referring MD: Carl Herrera MD Medicines: Monitored Anesthesia Care Complications: No immediate complications. Estimated Blood Loss: Estimated blood loss: none. Procedure: Pre-Anesthesia Assessment: - ASA Grade Assessment: II - A patient with mild systemic disease. - After reviewing the risks and benefits, thepatient was deemed in satisfactory condition to undergo the procedure. After I obtained informed consent, the scope was passed under direct vision. Throughout theprocedure, the patient's blood pressure, pulse, and oxygen saturations were monitored continuously.The Colonoscope was introduced through the anus and advanced to the cecum, identified by appendiceal orifice and ileocecal valve. The colonoscopy was performed without difficulty. The patient tolerated the procedure well. The quality of the bowel preparation was good. Findings: Multiple small and large-mouthed diverticula were found in the sigmoid colon. Non-bleeding internal hemorrhoids were found during retroflexion. The hemorrhoids were small. The exam was otherwise without abnormality ondirect and retroflexion views. Procedure Code(s): --- Professional --- G0105, Colorectal cancer screening; colonoscopy on individual at high risk Diagnosis Code(s): --- Professional --- Z86.010, Personal history of colonic polyps CPT copyright 2020 [employer]. All rights reserved. The codes documented in this report are preliminary and upon operations management trainee reviewmay be revised to meet current compliance requirements. Carl Herrera MD 10/11/2024 9:57:31 AM This report has been signed electronically.Carl Herrera MD Number of Addenda: 0 Note Initiated On: 10/11/2024 9:34 AM Scope In: Scope Out: Endoscopy Department at [facility] - [address] [place] [id number] IMPRESSION: - Diverticulosis in the sigmoid colon. - Non-bleeding internal hemorrhoids. - The examination was otherwise normal on directand retroflexion views. - No specimens collected. Recommendation: - Discharge patient to home. - High fiber diet. - Continue present medications. - Repeat colonoscopy in 5-10 years forsurveillance. - Return to GI office PRN. Carl Herrera MD GI~PROCEDURE ORDERABLES Final Result from Last 3 Months or Most Recently Relevant to Health Maintenance Insurance [employer] Care Teams Assistance Representative Relationship Specialty Start Date End Date Maritza Dalton MD [address] [place] [address] PCP - General Internal Medicine 02/24/17
--- OUTSIDE RECORDS SUMMARY | 2025-04-23 13:17 | XMS_ITS | Clinical Summary ---
Author Organization [facility] Address [address] [place] [id number] Care Team Providers Care Staff Climate Scientist Name Role Phone Maritza Dalton MD Primary Care Provider [phone] Allergies No known active allergies Medications Medication [...] 85 05/19/2024 3:26 PM EDT Temperature 36.6 C (97.8 F) 05/19/2024 3:26 PM EDT Respiratory Rate - - Oxygen Saturation 99% [...] Fall Risk Assessment 2023 Influenza Vaccine (#1) 2025 RSV Adult > 60+ Yrs or Pregn ant (1 - 1-dose 75+ series) 2033 Hepatitis B Vaccines Aged Out No long er eligible based on patient's age to complete this topic RSV Ped < 20 months Aged Out No longe r eligible based on patient's age to complete this topic Care Teams Staff Climate Scientist Relationship Specialty Start Date End Date Maritza Dalton MD [address] [place] [address] [address] [place] [address] PCP - General Internal Medicine 02/24/17
== END 2025-04-23 10:55 | disposition home or self-care (01) ==
LOC: HO.BBR 10:54
PROVIDERS: Visit Provider Internal Medicine Hematology & Oncology
DX: D45 Polycythemia vera (principal)
CPT/HCPCS: 85018; 99195

== ENCOUNTER 2025-07-16 08:54 | Outpatient (REF) | payer OTHER, SELFPAY ==
--- OUTSIDE RECORDS SUMMARY | 2024-05-19 14:11 | XMS_ITS | Encounter Summary ---
Author Organization [facility] Address [address] [place] [address] Care Team Providers Care Manager Video Games Name Role Phone Maritza Dalton MD Primary Care Provider [phone] Encounter Details Date Type Department Care Team (Late st Contact Info) Description 05/19/2024 3:11 PM EDT Hospital Encounter TH HISTORIC ENCOUNTERS EASTERN CONVERSION ONLY Jose M Jose MD [address] [place] [phone] Social History Tobacco Use Types Packs/Day Years Used Date Smoking Tobacco: Never Smokeless Tobacco: Never Alcohol Use Standard Drinks/Week Comments No 0 (1 standard drink = 0.6 oz pur e alcohol) Interpersonal Safety Answer Date Record ed Physical Abuse Unrecognized value 10/11/2024 Verbal Abuse Unrecognized value 10/11/2024 Sex and Gender Information Value Date Recorded Sex Assigned at Male 10/11/2024 9:01 AM EST Legal Sex Male 7:04 AM EST Gender Identity Male 10/11/2024 9:01 AM EST Sexual Orientation Straight 10/11/2024 9: 01 AM EST documented as of this encounter Last Filed Vital Signs Vital Sign Reading Time Taken Comments Blood Pressure 133/79 05/19/2024 3:26 PM EDT Sitting Right arm Pulse 85 05/19/2024 3:26 PM EDT Temperature - - Respiratory Rate - - Oxygen Saturation - - Inhaled Oxygen Concentration - - Weight 92.1 kg (203 lb) 05/19/2024 3:26 PM EDT Height 170.2 cm (5' 7 ) 05/19/2024 3:26 PM EDT Body Mass Index 31.79 05/19/2024 3:26 PM EDT documented in this encounter Progress Notes * Jose M Jose MD - 05/19/2024 3:15 PM EDT Diagnosis/treatment: ? Polycythemia vera, diagnosed in 2010. He is treated with phlebotomies every 6 weeks and ASA 81 mg daily. ? Interval history: ? The patient is a 64 yo M who was referred for evaluation of polycythemia. The patient has never smoked. A WBC on 07/27/2011 showed a WBC at 14.6, Hg at 18.4, and platelet CT at 509K. He denies headaches or other sites of pain, apart from chronic lower back pain. He has had a normal appetite and stable weight. He has hypertension, which is improved with phlebotomies. ? A FRANK-2 exon 12 and 13 and a FRANK-2 exon 14 studies and a BCR-ABL study were negative. An EPO level was normal. A CXR was unremarkable. An abdominal US was unremarkable. ? He has started phlebotomies at 450 cc and is tolerating the procedures well. He had one syncopal episode in the infusion room in mid-06/2012 immediately following phlebotomy, but reported not having eaten breakfast or lunch that day. ? A CBC on 08/28/2020 showed a WBC 8.8 with ANC 6.3, hemoglobin 14.0 with MCV 91, and platelet count 594,000. A ferritin was low at 14 on 12/10/2016. A CBC on 10/09/2019 showed a WBC 12.1, hemoglobin 14.8 with MCV 91, and platelet count 533,000. A CBC on 11/20/2020 showed a WBC 12.1, hemoglobin 15.7 with MCV 90, and platelet count 513,000. A CBC on 01/01/2021 showed a WBC 12.8, hemoglobin 15.1 with MCV 90, and platelet count 511,000. A CBC on 02/19/2021 showed a WBC 10.6, hemoglobin 16.1 with MCV 88, and platelet count 506,000. A CBC on 04/02/2021 showed a WBC 16.6, hemoglobin 14.2 with MCV 90, and platelet count 554,000. A CBC on 05/14/2021 showed a WBC 11.4, hemoglobin 15.6 with MCV 88, and platelet count 501,000. A CBC on 06/25/2021 showed a WBC 10.0, hemoglobin 14.5 with MCV 87, and platelet count 505,000. A CBC on 08/06/2021 showed a WBC 10.0, hemoglobin 14.6 with MCV 89, and platelet count 527,000. A CBC on 09/16/2021 showed a WBC 11.5, hemoglobin 15.3 with MCV 90, and platelet count 509,000. A CBC on 10/29/2021 showed a WBC of 10.2, hemoglobin 14.9 with MCV 89, and platelet count 474,000. A CBC on 12/11/2021 showed a WBC of 11.6, hemoglobin 15.7 with MCV 90, and platelet count 571,000. A CBC on 01/22/2022 showed a WBC 8.5, hemoglobin 15.7 with MCV 89, and platelet count 495,000. A CBC on 03/04/2022 showed WBC 9.8, hemoglobin 14.6 with MCV 87, and platelet count 477,000. A CBC on 04/16/2022 showed WBC 10.7, hemoglobin 15.8 with MCV 88, and platelet count 455,000. A CBC on 05/28/2022 showed WBC 10.2, hemoglobin 15.8 with MCV 89, and platelet count 495,000. A CBC on 07/16/2022 showed WBC 10.4, hemoglobin 15.6 with MCV 87, and platelet count 486,000. A CBC on 09/02/2021 showed WBC 11.1, hemoglobin 14.2 with MCV 90, and platelet count 517,000. A CBC on 10/28/2022 showed WBC 10.7, hemoglobin 16.1 with MCV 90, and platelet count 524,000. A CBC on 12/09/2022 showed WBC 9.4, hemoglobin 14.8 with MCV 90, and platelet count 491,000. A CBC on 01/20/2023 showed WBC 15.4, hemoglobin 16.1 with MCV 90, and platelet count 595,000. A CBC on 03/03/2023 showed WBC 10.0, hemoglobin 15.3 with MCV 90, and platelet count 524,000. A CBC on 04/14/2023 showed WBC 9.4, hemoglobin 14.5 with MCV 89, and platelet count 489,000. A CBC on 05/26/2023 showed WBC 8.3, hemoglobin 13.8 with MCV 92, and platelet count 492,000. A CBC on 07/14/2023 showed WBC 12.5, hemoglobin 16.0 with MCV 89, and platelet count 555,000. A CBC on 08/25/2023 showed WBC 8.1, hemoglobin 14.3 with MCV 90, and platelet count 518,000. A CBC on 10/06/2023 showed WBC 10.7, hemoglobin 15.7 with MCV 90, and platelet count 592,000. A CBC on 11/17/2023 showed WBC 7.3, hemoglobin 14.7 with MCV 90, and platelet count 533,000. A CBC on 01/05/2024 showed WBC 8.3, hemoglobin 16.1 with MCV 88, and platelet count 508,000. A CBC on 02/16/2024 showed WBC 9.1, hemoglobin 14.7 with MCV 90, and platelet count 519,000. A CBC on 04/05/2024 showed WBC 10.9, hemoglobin 15.7 with MCV 88, platelet count 521,000. His last phlebotomy was in late 03/2024. A CBC on 05/17/2024 showed WBC 11.1, hemoglobin 15.2 with MCV 87, and platelet count 525,000. He is scheduled to undergo a left knee replacement on 06/01/2024. 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 He reports that the pain is bothersome at nighttime, especially while lying flat, and prevents him from sleeping, but remits during the day. The swelling also is worse at nighttime and remits during the day. She presented to the [facility] ER on 08/08/2020. A Doppler ultrasound of the left lower extremity showed no DVT. X-rays of the left foot and left ankle showed mild soft tissue swelling and arterial calcification and were otherwise unremarkable. He took Aleve 1 pill twice daily. The pain and swelling lessened. I recommended increasing the aspirin to 325 mg daily. I prescribed gabapentin, at an initial dose of 100 mg 3 times daily x1 week then 200 mg 3 times daily x1 week. The symptoms resolved during the second week of gabapentin therapy and have not recurred.. Review of systems: The remainder of a 10 point review of systems was unremarkable. Physical examination: HEENT: Sclerae anicteric, normal oropharyngeal membrane. Neck: No lymphadenopathy. Lungs: Clear to auscultation. Heart: No murmurs. Abdomen: Soft, nontender, no organomegaly or masses. Extremities: No edema. Skin: No rash. Neurologic: Normal gait. ? Assessment/plan: ? The patient is a 64 yo M who was referred for evaluation of polycythemia. He likely has a [id number] polycythemia vera. An EPO level and an abdominal US were unremarkable. His Hg lawanda with a phlebotomy every 6 week schedule. We continued phlebotomies every 4 weeks and induced a mild iron deficiency. We attempted to wait 10 weeks until phlebotomy, but his Hg lawanda significantly. We will continue phlebotomies every 6-12 weeks with a target Hg of 15.0. He is tolerating phlebotomies well. He developed left lower leg symptoms, including pain at nighttime and when lying flat, in late 07/2020, consistent with erythromelalgia, which is lessening on Aleve. I recommended increasing the aspirin to 325 mg daily. I prescribed gabapentin, at an initial dose of 100 mg 3 times daily x1 week then 200 mg 3 times daily x1 week. The symptoms resolved during the second week of gabapentin therapy and have not recurred. He remains off gabapentin. He is scheduled to undergo a left knee replacement 06/01/2024. A hemoglobin on 05/17/2024 was 15.2. Due to the anticipated blood loss with the surgery, we will delay the planned phlebotomy until aftera reassessment with a CBC in 6 weeks. I instructed him to hold the aspirin for 7 days prior to surgery and to restart the aspirin following the surgery. He will require a standard course of prophylactic dosing of anticoagulation following surgery. He should receive prophylactic anticoagulation for at least 30 days or longer if he is not fully ambulatory at 30 days, in which case he should receiveprophylactic anticoagulation until he is ambulatory. ? This encounter is of moderate risk. The patient has polycythemia vera, which is a life-threatening condition. We are continuing scheduled phlebotomies. documented in this encounter Plan of Treatment Upcoming Encounters Date Type Department Care Team (Late st Contact Info) Description 08/24/2025 2:15 PM EST Office Visit [facility] Hematology Oncology [address] [place] [address] Jose M Jose MD [address] [place] [address] documented as of this encounter Procedures Procedure Name Priority Date/Time Associated Diagnosis Comments ..MISCELLANEOUS REFERENCE LAB TEST 05/19/2024 documented in this encounter Results * Miscellaneous reference lab test (05/19/2024) us Provider Onbase LAB BLOOD ORDERABLES Final Re sult documented in this encounter Visit Diagnoses Not on filedocumented in this encounter Care Teams Manager Video Games Relationship Specialty Start Date End Date Maritza Dalton MD [address] [place] [address] PCP - General Internal Medicine 02/24/17 documented as of this encounter
--- OUTSIDE RECORDS SUMMARY | 2025-07-11 08:05 | XMS_ITS | Encounter Summary ---
Author Organization [facility] Address [address] [place] [address] Care Team Providers Care Transformer Mechanic Name Role Phone Maritza Dalton MD Primary Care Provider Encounter Details Date Type Department Care Team (Late Contact Info) Description 07/11/2025 8:05 AM EST Lab Draw Station - [address] [phone] Polycythemia vera (CMS/HCC V24, CMS/HCC V28) Social History Tobacco Use Types Packs/Day Years [...] AM EST documented as of this encounter Plan of Treatment Upcoming Encounters Date Type Department Care Team (Late Contact Info) Description 08/24/2025 2:15 PM EST Office Visit [facility] Hematology Oncology [address] [place] [phone] Jose M Jose MD [address] [place] [phone] documented as of this encounter Procedures Procedure Name Priority Date/Time Associated Diagnosis Comments CBC WITH AUTO DIFFERENTIAL Routine 07/11/2025 8:05 AM EST Polycythemia vera ([facility] V24, [facility] V28) CBC AND DIFFERENTIAL Routine 07/11/2025 8:05 AM EST Polycythemia vera ([facility]/HCC V24, [facility] V28) documented in this encounter Results * (ABNORMAL) CBC auto differential (07/11/2025 8:05 AM EST) [facility] WBC 8.1 4.8 - 10.8 K/mcL LAB HEMETOLOGY METHOD 07/11/2025 12:45 PM [facility] RBC 5.20 4.50 - 5.50 M/mcL LAB HEMETOLOGY METHOD 07/11/2025 12:45 PM [facility] Hemoglobin 15.4 13.5 - 17.5 g/dL LAB HEMETOLOGY METHOD 07/11/2025 12:45 PM [facility] Hematocrit 47.4 42.0 - 54.0 % LAB HEMETOLOGY METHOD 07/11/2025 12:45 PM [facility] MCV 90.5 79.0 - 98.0 FL LAB HEMETOLOGY METHOD 07/11/2025 12:45 PM [facility] MCH 29.4 27.0 - 32.0 pcg LAB HEMETOLOGY METHOD 07/11/2025 12:45 PM [facility] MCHC 32.5 32.0 - 37.0 g/dL LAB HEMETOLOGY METHOD 07/11/2025 12:45 PM [facility] RDW 14.3 11.0 - 15.0 % LAB HEMETOLOGY METHOD 07/11/2025 12:45 PM [facility] Platelets 484(H) 130 - 400 K/mcL LAB HEMETOLOGY METHOD 07/11/2025 12:45 PM [facility] MPV 9.7 7.0 - 11.0 FL LAB HEMETOLOGY METHOD 07/11/2025 12:45 PM [facility] NRBC 0.0 <1.0 % LAB HEMETOLOGY METHOD 07/11/2025 12:45 PM [facility] NRBC Absolute 0.00 <0.10 K/mcL LAB HEMETOLOGY METHOD 07/11/2025 12:45 PM [facility] Neutrophils Relative 64.2 % LAB HEMETOLOGY METHOD 07/11/2025 12:45 PM [facility] Lymphocytes Relative 22.0 % LAB HEMETOLOGY METHOD 07/11/2025 12:45 PM [facility] Monocytes Relative 9.5 % LAB HEMETOLOGY METHOD 07/11/2025 12:45 PM [facility] Eosinophils Relative 2.3 % LAB HEMETOLOGY METHOD 07/11/2025 12:45 PM [facility] Basophils Relative 1.5 % LAB HEMETOLOGY METHOD 07/11/2025 12:45 PM [facility] Immature Granulocytes Relative 0.5 % LAB HEMETOLOGY METHOD 07/11/2025 12:45 PM [facility] Neutrophils Absolute 5.20 1.50 - 7.00 K/mcL LAB HEMETOLOGY METHOD 07/11/2025 12:45 PM [facility] Lymphocytes Absolute 1.78 1.00 - 5.00 K/mcL LAB HEMETOLOGY METHOD 07/11/2025 12:45 PM [facility] Monocytes Absolute 0.77 0.20 - 1.00 K/mcL LAB HEMETOLOGY METHOD 07/11/2025 12:45 PM [facility] Eosinophils Absolute 0.19 0.00 - 0.50 K/mcL LAB HEMETOLOGY METHOD 07/11/2025 12:45 PM [facility] Basophils Absolute 0.12 0.00 - 0.20 K/mcL LAB HEMETOLOGY METHOD 07/11/2025 12:45 PM EST [facility] Immature Granulocytes Absolute 0.04(H) 0.00 - 0.03 K/mcL LAB HEMETOLOGY METHOD 07/11/2025 12:45 PM EST [facility] Blood Venous blood specimen / Unknown Venipuncture / Unknown 07/11/2025 8:05 AM EST 07/11/2025 12:23 PM EST us Jose M Jose MD LAB BLOOD ORDERABLES Final Result [facility] [address] [place] [address], documented in this encounter Visit Diagnoses Diagnosis Polycythemia vera (CMS/HCC V24, CMS/HCC V28) documented in this encounter Care Teams Transformer Mechanic Relationship Specialty Start Date End Date Maritza Dalton MD [address] [place] [address] PCP - General Internal Medicine 02/24/17 documented as of this encounter
--- OUTSIDE RECORDS SUMMARY | 2025-07-16 10:01 | XMS_ITS | Clinical Summary ---
Author Organization [facility] Address [address] [place] [address] Phone Care Team Providers Care College And Career Counselor Name Role Phone Maritza Dalton MD Primary Care Provider [phone] Allergies No known active allergies Medications aspirin [...] Problems Problem Noted Date Diagnosed Date Erythromelalgia ([facility]/HCC V24) 08/30/2020 Polycythemia vera ([facility]/HCC V24, [facility]/HCC V28) Encounters Date Type Department Care Team Description 07/11/2025 8:05 AM EST Lab Draw Station - [address] [phone] Polycythemia vera (CMS/HCC V24, [facility]/HCC V28) 06/01/2025 2:00 PM EDT Office Visit [facility] Hematology Oncology [address] [place] [phone] Jose M Jose MD Polycythemia vera ([facility] V24, [facility] V28) (Primary Dx) from Last 3 Months Surgical History Surgery Date Site/Laterality Comments TOTAL KNEE ARTHROPLASTY 06/01/2024 Left COLONOSCOPY Medical History Medical History Date Comments Polycythemia DX:Polycythemia Hypertension DX:Hypertension Hypercholesterolemia DX:Hypercho lesterolemia Polycythemia vera ([facility] V24, [facility] V28) Family History Medical History Relation Name [...] Sign Reading Time Taken Comments Blood Pressure 146/88 06/01/2025 1:56 PM EDT Pulse 89 06/01/2025 1:56 PM EDT Temperature 36.7 C (98.1 F) 06/01/2025 1:56 PM EDT Respiratory Rate 18 10/11/2024 10:17 AM EST Oxygen Saturation 98% 06/01/2025 1:56 PM EDT Inhaled Oxygen Concentration - - Weight 96.6 kg (213 lb) 06/01/2025 1:56 PM EDT Height 170.2 cm (5' 7 ) 10/11/2024 9:26 AM EST Body Mass Index 33.36 10/11/2024 9:26 AM EST Plan of Treatment Upcoming Encounters Date Type Department Care Team (Late st Contact Info) Description 08/24/2025 2:15 PM EST Office Visit [facility] Hematology Oncology [address] [place] [phone] Jose M Jose MD [address] [place] [phone] Health Maintenance Due Date Last Done Comments Zoster Vaccines (1 of 2) 1977 Pneumococcal Vaccine: 50+ Years (1 of 1 - PCV) 01/18/2008 Cholesterol Screening (Lipid Panel) 07/19/2022 Hepatitis C Screening 07/19/2022 Medicare Annual Wellness Visit 07/19/2022 Social Influencers of Health Screening 07/19/2022 Hypertension/CHF/CAD Annual BMP Blood Test 06/28/2024 Depression Screening 08/16/2024 Falls Risk Assessment 10/11/2025 10/11/2024 COVID-19 Vaccine (7 - Pfizer risk 2024- season) 2025 05/04/2025, 04/24/2024, 05/18/2023, Additional history exists DTaP,Tdap,and Td Vaccines (2 - Td or [...] Routine 07/11/2025 8:05 AM EST Polycythemia vera (CMS/HCC V24, CMS/HCC V28) CBC AND DIFFERENTIAL Routine 07/11/2025 8:05 AM EST Polycythemia vera (CMS/HCC V24, CMS/HCC V28) CBC WITH AUTO DIFFERENTIAL Routine 05/30/2025 12:41 PM EDT Polycythemia vera (CMS/HCC V24, CMS/HCC V28) CBC AND DIFFERENTIAL Routine 05/30/2025 12:41 PM EDT Polycythemia vera (CMS/HCC V24, CMS/HCC V28) CBC WITH AUTO DIFFERENTIAL Routine 04/18/2025 9:19 AM EDT Polycythemia vera (CMS/HCC V24, CMS/HCC V28) CBC AND DIFFERENTIAL Routine 04/18/2025 9:19 AM EDT Polycythemia vera (CMS/HCC V24, CMS/HCC V28) COLONOSCOPY Routine 10/11/2024 9:56 AM EST Personal history of other colon polyps from Last 3 Months or Most Recently Relevant to Health Maintenance Results * (ABNORMAL) CBC auto differential (07/11/2025 8:05 AM EST) Only the most recent of3 resultswithin the time period is included. WBC 8.1 4.8 - 10.8 K/mcL LAB HEMETOLOGY METHOD 07/11/2025 12:45 PM EST [facility] RBC 5.20 4.50 - 5.50 M/mcL LAB HEMETOLOGY METHOD 07/11/2025 12:45 PM EST [facility] Hemoglobin 15.4 13.5 - 17.5 g/dL LAB HEMETOLOGY METHOD 07/11/2025 12:45 PM EST [facility] Hematocrit 47.4 42.0 - 54.0 % LAB HEMETOLOGY METHOD 07/11/2025 12:45 PM [facility] MCV 90.5 79.0 - 98.0 FL LAB HEMETOLOGY METHOD 07/11/2025 12:45 PM [facility] MCH 29.4 27.0 - 32.0 pcg LAB HEMETOLOGY METHOD 07/11/2025 12:45 PM [facility] MCHC 32.5 32.0 - 37.0 g/dL LAB HEMETOLOGY METHOD 07/11/2025 12:45 PM [facility] RDW 14.3 11.0 - 15.0 % LAB HEMETOLOGY METHOD 07/11/2025 12:45 PM [facility] Platelets 484(H) 130 - 400 K/mcL LAB HEMETOLOGY METHOD 07/11/2025 12:45 PM [facility] MPV 9.7 7.0 - 11.0 FL LAB HEMETOLOGY METHOD 07/11/2025 12:45 PM [facility] NRBC 0.0 <1.0 % LAB HEMETOLOGY METHOD 07/11/2025 12:45 PM [facility] NRBC Absolute 0.00 <0.10 K/mcL LAB HEMETOLOGY METHOD 07/11/2025 12:45 PM [facility] Neutrophils Relative 64.2 % LAB HEMETOLOGY METHOD 07/11/2025 12:45 PM [facility] Lymphocytes Relative 22.0 % LAB HEMETOLOGY METHOD 07/11/2025 12:45 PM [facility] Monocytes Relative 9.5 % LAB HEMETOLOGY METHOD 07/11/2025 12:45 PM [facility] Eosinophils Relative 2.3 % LAB HEMETOLOGY METHOD 07/11/2025 12:45 PM [facility] Basophils Relative 1.5 % LAB HEMETOLOGY METHOD 07/11/2025 12:45 PM EST [facility] Immature Granulocytes Relative 0.5 % LAB HEMETOLOGY METHOD 07/11/2025 12:45 PM [facility] Neutrophils Absolute 5.20 1.50 - 7.00 K/mcL LAB HEMETOLOGY METHOD 07/11/2025 12:45 PM [facility] Lymphocytes Absolute 1.78 1.00 - 5.00 K/mcL LAB HEMETOLOGY METHOD 07/11/2025 12:45 PM [facility] Monocytes Absolute 0.77 0.20 - 1.00 K/mcL LAB HEMETOLOGY METHOD 07/11/2025 12:45 PM [facility] Eosinophils Absolute 0.19 0.00 - 0.50 K/mcL LAB HEMETOLOGY METHOD 07/11/2025 12:45 PM EST [facility] Basophils Absolute 0.12 0.00 - 0.20 K/mcL LAB HEMETOLOGY METHOD 07/11/2025 12:45 PM [facility] Immature Granulocytes Absolute 0.04(H) 0.00 - 0.03 K/mcL LAB HEMETOLOGY METHOD 07/11/2025 12:45 PM EST [facility] Blood Venous blood specimen / Unknown Venipuncture / Unknown 07/11/2025 8:05 AM EST 07/11/2025 12:23 PM EST us Jose M Jose MD LAB BLOOD ORDERABLES Final Result [facility] [address] [place] [address], * COLONOSCOPY Anesthesia - MAC; [facility] ENDOSCOPY (10/11/2024 9:56 AM EST) Anatomical Region [...] office PRN. Narrative 10/11/2024 9:57 AM EST [facility] GI Patient Name: Francis Horton Procedure [...] history of colonic polyps CPT copyright 2020 [employer]. All rights reserved. The codes documented in this report are preliminary and upon industrial sociologist review may be revised to meet current compliance requirements. Carl Herrera MD 10/11/2024 9:57:31 AM This report has been signed electronically.Carl Herrera MD Number of Addenda: 0 Note Initiated On: 10/11/2024 9:34 AM Scope In: Scope Out: Endoscopy Department at [facility] - [address] [place] [phone] Procedure Note Carl Herrera MD - 10/11/2024 [facility] GI Patient Name: Francis Horton Procedure Date: 10/11/2024 9:34 AM Date of : 1960 Age: 64 Room: ROOM 15 Gender: Male Note Status: Finalized Attending MD: Carl Hrerera MD, Procedure Date No Time: 10/11/2024 Procedure: [...] history of colonic polyps CPT copyright 2020 [employer]. All rights reserved. The codes documented in this report are preliminary and upon industrial sociologist reviewmay be revised to meet current compliance requirements. Carl Herrera MD 10/11/2024 9:57:31 AM This report has been signed electronically.Carl Herrera MD Number of Addenda: 0 Note Initiated On: 10/11/2024 9:34 AM Scope In: Scope Out: Endoscopy Department at [facility] - [address] [place] [phone] IMPRESSION: - Diverticulosis in the sigmoid colon. [...] [employer] [employer] Care Teams College And Career Counselor Relationship Specialty Start Date End Date Maritza Dalton MD [address] [place] [address] PCP - General Internal Medicine 02/24/17
--- OUTSIDE RECORDS SUMMARY | 2025-07-16 10:01 | XMS_ITS | Clinical Summary ---
Author Organization [facility] Address [address] [place] [address] Care Team Providers Care Soft Sugar Cutter Name Role Phone Maritza Dalton MD Primary Care Provider [phone] Allergies No known active allergies Medications Medication [...] age to complete this topic Care Teams Soft Sugar Cutter Relationship Specialty Start Date End Date Maritza Dalton MD [address] [place] [address] [address] [place] [address] PCP - General Internal Medicine 02/24/17
== END 2025-07-16 08:55 | disposition home or self-care (01) ==
LOC: HO.BBR 08:54
PROVIDERS: Visit Provider Internal Medicine Hematology & Oncology
DX: D45 Polycythemia vera (principal)
CPT/HCPCS: 85018; 99195